=== PATIENT | female | born 1980 | race Caucasian/White ===

== ENCOUNTER → 2018-12-20 | Outpatient (CLI) | payer OTHER ==
[~2018-12-20] MED LIST: ALB6.7R INH; ALBU2.5V36 INH; ALBU8.5H IH; CETI10CA8 PO; CITA-145 PO
[2018-12-20 11:07] LABS: PLATELET COUNT, AUTOMATED 300 K/uL (150-450)
== END ==
LOC: LAB 08:08
PROVIDERS: ATTEND Student in an Organized Health Care Education/Training Program
DX: Z34.81 Encounter for supervision of other normal pregnancy, first trimester (principal)
CPT/HCPCS: 36415; 81001; 85025; 86592; 86703; 86762; 86850; 86900; 86901; 87088; 87340

== ENCOUNTER → 2018-12-27 | Outpatient (CLI) | payer OTHER | LOC: LAB 08:18 | PROVIDERS: ATTEND Obstetrics & Gynecology | DX: Z02.9 Encounter for administrative examinations, unspecified (principal) ==

== ENCOUNTER → 2019-03-17 | Outpatient (CLI) | payer OTHER ==
--- NOTE | 2019-03-17 10:44 | RADIOLOGY IMAGING REPORT ---
FACILITY: [facility] PATIENT NAME: Reny Bhagat : 1980 MR: [id number] V: [id number] EXAM DATE: [id number] ORDERING PHYSICIAN: JOSE DURBIN TECHNOLOGIST: Location: Patient: Reny Bhagat : 1980 Visit/Account:[id number] Date of Sevice: 03/17/2019 EXAMINATION: Ultrasound transabdominal OB > 14 weeks with anatomic evaluation HISTORY: Anatomic survey COMPARISON: None. TECHNIQUE: Transabdominal imaging was performed for assessment of the fetus and maternal pelvic structures. T ransvaginal imaging was not performed. FINDINGS: Placenta: Anterior and fundal without previa. Uterus: Gravid, otherwise normal Cervix: Long and closed. Maternal Ovaries: Not visualized. Maternal and other adnexa findings: Not visualized Intrauterine gestations: One. presentation: Variable heart rate: Normal and regular at 139 bpm Amniotic fluid index: 13.67 cm Largest amniotic fluid pocket: 4.54 cm Gestational Parameters: BPD: 5.03 cm 21 weeks/ two days, 84% HC: 18.7 cm 21 weeks/ one days, 75% AC: 15.55 cm 20 weeks/ six days, 59% FL: 3.28 cm 20 weeks/ two days, 40% Average ultrasound age (AUA): 21 weeks/zero days, RIYA 07/28/2019 Estimated gestational age by LMP: 20 weeks/two days, RIYA 08/02/2019 Estimated weight (EFW): 363 grams +/- 53 grams EFW for LMP: 62 percentile Anatomic Survey: Intracranial structures, 4-chamber heart, stomach, kidneys, urinary bladder, spine, 3-vessel cord and cord insertion are unremarkable. Two upper and two lower extremities visualized. Cardiac ventricula r outflow tracts, palate and lips are unremarkable in appearance. IMPRESSION: Single viable fetus in variable presentation with an estimated gestational age by measur ements of 21 weeks and zero days. Estimated gestational age by LMP is 20 weeks and two days. Estimated weight is 363 g which is equivalent to the 62nd percentile Report Dictated By: Dia Rice MD at 03/17/2019 10:29 AM Report E-Signed By: Dia Rice MD at 03/17/2019 10:34 AM WSN:[email or web address]
== END ==
LOC: RAD 08:50
PROVIDERS: ATTEND Obstetrics & Gynecology
DX: O09.522 Supervision of elderly multigravida, second trimester (principal)